=== PATIENT | female | born 1970 | race Caucasian/White ===

== ENCOUNTER 2023-02-01 11:07 | Outpatient (OUT) | payer OTHER, SELFPAY ==
--- NOTE | 2023-02-01 11:12 | PM.CN ---
Consult Note: HPI Data of Consult Patient: known to practice within the last 3 years Consult date: 02/01/23 Requesting Physician: OMEGA RAGLAND NP Primary Care Provider: Non-Staff Physician, MD Consult Narrative Reason for consult: back pain Narrative: Patient is here for f/u of low back pain. She is not interested in procedures. She has had CHALO before without relief. She wants medical management. She was on norco previously, but has been off of it since 10/26. No new sensorimotor sx or bowel or bladder issues. Medication regimen is controlling pain and assisting patient with ability to perform ADLs. She states her back pain has increased after stopping norco. Pain is lower left back pain which radiates down left leg and she has numbness and heaviness of left leg. We discussed adding cymbalta on her medication regimen and she agrees cc:: CC: OMEGA RAGLAND NP Review of Systems ROS Status of ROS 10 or more systems reviewed and unremarkable except as noted in history and below Musculoskeletal Reports: back pain Exam Constitutional Documenting provider has reviewed patient's vital signs: yes Common normals: no apparent distress, average body habitus, oriented x3, no limitations, healthy appearing, alert and well nourished Orientation/consciousness: Yes awake, Yes oriented to person, Yes oriented to place and Yes oriented to time HENMT Common normals: normocephalic, nasal mucous membranes and turbinates normal and moist oral mucous membranes Respiratory Common normals: normal respiratory effort, no retractions and no use of accessory muscles Effort & inspection: able to speak in complete sentences and symmetric chest movement Back & Pelvis Lumbar spine/lower back: normal to inspection, pain with ROM, paraspinal muscle tenderness, paraspinal muscle spasm and straight leg raise negative bilaterally Other: positive mayi left muscle strength 5/5 right LE, 4/5 left LE intact sensation bilat LE positive facet load left Extremity Common normals: normal to inspection, full ROM, normal capillary refill and no pedal edema Assessment and Plan Assessment and Plan (1) Lumbar radiculopathy: (2) Lumbar spondylosis: (3) Muscle spasm: Plan f/u in 3 months start cymbalta refills given magnesium glycinate
== END 2023-02-01 11:08 | disposition home or self-care (01) ==
PROVIDERS: Visit Provider Nurse Practitioner
DX: M47.26 Other spondylosis with radiculopathy, lumbar region (principal); M62.838 Other muscle spasm; M54.50 Low back pain, unspecified
CPT/HCPCS: G0463

== ENCOUNTER 2023-05-16 08:23 | Outpatient (OUT) | payer OTHER, SELFPAY ==
--- NOTE | 2023-05-16 08:45 | P.CN_ITS ---
Consult Note: HPI Data of Consult Patient: known to practice within the last 3 years Requesting Physician: OMEGA RAGLAND NP Primary Care Provider: Non-Staff Physician, Consult Narrative Reason for consult: f/u Narrative: Irena deal pleasant 53 year old female presents for evaluation of chronic Today rating pain /10 cc:: CC: OMEGA RAGLAND NP Review of Systems ROS Status of ROS 10 or more systems reviewed and unremarkable except as noted in history and below Musculoskeletal Reports: back pain Exam Constitutional Documenting provider has reviewed patient's vital signs: yes Common normals: no apparent distress, oriented x3, healthy appearing, alert and well nourished General appearance: cooperative Orientation/consciousness: Yes awake, Yes oriented to person, Yes oriented to place and Yes oriented to time HENMT Common normals: normocephalic, hearing grossly normal bilaterally and moist oral mucous membranes Head and scalp: normocephalic Eye Common normals: PERRL Pupil: PERRL Neck & C-Spine Common normals: full ROM General: normal visual inspection Chest Common normals: inspection of chest normal Respiratory Common normals: normal respiratory effort, no retractions and no use of accessory muscles Effort & inspection: able to speak in complete sentences and symmetric chest movement Back & Pelvis Lumbar spine/lower back: normal to inspection, pain with ROM, paraspinal muscle tenderness and straight leg raise negative bilaterally Sacroiliac joints: SI joint(s) abnormal (tender over left PSIS, positive mayi left) Other: muscle strength 5/5 right LE, 5/5 left LE intact sensation bilat LE positive facet load left>right radiculopathy at times down left leg Extremity Common normals: normal to inspection, full ROM, normal capillary refill and no pedal edema Neuro Common normals: oriented x3, CN's II-XII intact bilaterally, moves all extremities, no focal motor deficits, no sensory deficits noted and deep tendon reflexes 2+ bilaterally Sensorium/orientation: alert Motor exam: strength 5/5 throughout and no movement abnormalities noted Psych Common normals: mental status grossly normal, thought process normal, cooperative, affect normal, speech normal and activity/motor behavior normal Speech: normal speech Thought process: normal thought process Results Additional Findings Additional findings: I have checked an [facility] report on this patient today and there are no aberr ancies noted in the prescribing history.?? A drug screen was completed and reviewed within the last year, and if there has not been a drug screen completed we ordered one today to monitor higher risk, state monitored pain medication use. As part of providing excellent, safe, comprehensive care, the following was completed at our patient's visit: 1. A medication reconciliation and review to ensure accurate knowledge of current/active medications, including asking our patients to inform us about any [id number] medications or herbal remedies/nutritional supplements/alternative remedies. 2. A review to specifically ensure our patients have had annual screening for: elevated body mass index (BMI), tobacco use, screening for depression, and screening for unhealthy alcohol use. When screening is concerning, patients are provided with education and the specific recommendation to discuss the concerning health issue and treatment options with their primary care provider. Assessment and Plan Assessment and Plan (1) Lumbar radiculopathy: (2) Lumbar spondylosis: (3) Muscle spasm: (4) Degenerative disc disease, lumbar: Plan increase duloxetine to 60mg qd, call if any side effects continue current medications declining injeciton therapy f/u 3 months
== END 2023-05-16 08:24 | disposition home or self-care (01) ==
PROVIDERS: Visit Provider Nurse Practitioner
DX: M47.26 Other spondylosis with radiculopathy, lumbar region (principal); M62.838 Other muscle spasm; M51.16 Intervertebral disc disorders with radiculopathy, lumbar region
CPT/HCPCS: G0463

== ENCOUNTER 2023-08-23 09:22 | Outpatient (OUT) | payer OTHER, SELFPAY ==
--- NOTE | 2023-08-23 09:45 | P.CN_ITS ---
Consult Note: HPI Data of Consult Patient: known to practice within the last 3 years Requesting Physician: Margie Izaguirre NP Primary Care Provider: Non-Staff Physician, Consult Narrative Reason for consult: f/u Narrative: Irena Levin a pleasant 53 year old female presents for evaluation of chronic back and left leg/foot pain. Today pain is 7/10, has been working all night. Reports numbness tingling to left leg. Pain increased with all acitivty, improved with heat, lying, sitting. Patient reports this is the worst her pain has been in a while, typically well controlled with current medication regimen. cc:: CC: Margie Izaguirre NP Review of Systems ROS Status of ROS 10 or more systems reviewed and unremark able except as noted in history and below Musculoskeletal Reports: back pain, extremity pain and joint pain Meds Home Medications and Allergies Home Medications Medication Instructions Recorded Confirmed Type baclofen 10 mg tablet 10 mg PO TID 05/16/23 05/16/23 History diclofenac sodium 75 mg 75 mg PO BID 05/16/23 05/16/23 History tablet,delayed release ibuprofen 200 mg tablet (Advil) 200 mg PO BID PRN pain 05/16/23 05/16/23 History multivitamin 1 tab PO DAILY 05/16/23 05/16/23 History pregabalin 75 mg capsule (Lyrica) 75 mg PO BID 05/16/23 05/16/23 History trazodone 50 mg tablet 50 mg PO DAILY 05/16/23 05/16/23 History Allergies Allergy/AdvReac Type Severity Reaction Status Date / Time No Known Drug Allergies Allergy Verified 05/16/23 12:06 Exam Constitutional Documenting provider has reviewed patient's vital signs: yes Common normals: no apparent distress, oriented x3, healthy appearing, alert and well nourished General appearance: cooperative Orientation/consciousness: Yes awake, Yes oriented to person, Yes oriented to place and Yes oriented to time HENNJ Common normals: normocephalic, hearing grossly normal bilaterally and moist oral mucous membranes Head and scalp: normocephalic Eye Common normals: PERRL Pupil: PERRL Neck & C-Spine Common normals: full ROM General: normal visual inspection Chest Common normals: inspection of chest normal Respiratory Common normals: normal respiratory effort, no retractions and no use of accessory muscles Effort & inspection: able to speak in complete sentences and symmetric chest movement Back & Pelvis Lumbar spine/lower back: normal to inspection, pain with ROM, paraspinal muscle tenderness and straight leg raise negative bilaterally Sacroiliac joints: SI joint(s) abnormal (tender over left PSIS, positive mayi left) Other: muscle strength 5/5 right LE, 5/5 left LE intact sensation bilat LE positive facet load left>right radiculopathy at times down left leg Extremity Common normals: normal to inspection, full ROM, normal capillary refill and no pedal edema Neuro Common normals: oriented x3, CN's II-XII intact bilaterally, moves all extremities, no focal motor deficits, no sensory deficits noted and deep tendon reflexes 2+ bilaterally Sensorium/orientation: alert Motor exam: strength 5/5 throughout and no movement abnormalities noted Psych Common normals: mental status grossly normal, thought process normal, cooperative, affect normal, speech normal and activity/motor behavior normal Speech: normal speech Thought process: normal thought process Results Additional Findings Additional findings: I have checked an [facility] report on this patient today and there are no aberrancies noted in the prescribing history.?? A drug screen was completed and reviewed within the last year, and if there has not been a drug screen completed we ordered one today to monitor higher risk, state monitored pain medication use. As part of providing excellent, safe, comprehensive care, the following was completed at our patient's visit: 1. A medication reconciliation and review to ensure accurate knowledge of current/active medications, including asking our patients to inform us about any nzzz-csy-nroxisl medications or herbal remedies/nutritional supplements/alternative remedies. 2. A review to specifically ensure our patients have had annual screening for: elevated body mass index (BMI), tobacco use, screening for depression, and screening for unhealthy alcohol use. When screening is concerning, patients are provided with education and the specific recommendation to discuss the concerning health issue and treatment options with their primary care provider. Assessment and Plan Assessment and Plan (1) Lumbar radiculopathy: (2) Lumbar spondylosis: (3) Muscle spasm: (4) Degenerative disc disease, lumbar: Plan continue current medications, tolerating well without side effects. continues to find benefit declining injeciton therapy and updating MRI f/u 6 months
== END 2023-08-23 09:23 | disposition home or self-care (01) ==
LOC: PM 09:22
PROVIDERS: Visit Provider Nurse Practitioner
DX: M54.16 Radiculopathy, lumbar region (principal); M47.816 Spondylosis without myelopathy or radiculopathy, lumbar region; M62.838 Other muscle spasm; M51.36 Other intervertebral disc degeneration, lumbar region
CPT/HCPCS: G0463